=== PATIENT | male | born 1985 | race Caucasian/White ===

== ENCOUNTER 2021-04-17 20:17 | Emergency (ER) | payer OTHER ==
[~2021-04-17] VITALS: Ht 167.6 cm; Wt 63.6 kg
[2021-04-17] MEDS ORDERED: LORazepam 1 MG TABLET PO ONE (21:30)
[2021-04-17 22:26] VITALS: BP 129/86
== END 2021-04-17 22:27 | disposition home or self-care (01) ==
LOC: EMS 20:19
DX: F41.9 Anxiety disorder, unspecified (principal); F32.9 Major depressive disorder, single episode, unspecified
CPT/HCPCS: 99283